=== PATIENT | female | born 1985 | race Caucasian/White ===

== ENCOUNTER 2021-05-16 10:06 | Emergency (ER) | payer OTHER, SELFPAY ==
[2021-05-16 10:07] VITALS: BP 169/109; PULSE 104; RESP 18; TEMP 36.2; O2SAT 95; BMI 44.8
[2021-05-16 10:09] VITALS: BP 169/109; PULSE 104; RESP 18; TEMP 36.4; O2SAT 95
--- NOTE | 2021-05-16 10:22 | ED.RN ---
Per pt [employer] Viktor Parra no drug test .
--- NOTE | 2021-05-16 10:27 | EDS_ITS ---
HPI History of Present Illness Chief Complaint: Laceration Detail of Chief Complaint: Left forearm laceration Informant: patient Occured/Mechanism Comment: Cut with a estimator paperboard boxes Onset/Context/Timing Current Severity: Mild Maximum Severity: Mild Narrative Narrative: Patient presents with left arm laceration. She was using a estimator paperboard boxes when the knife slipped and cut her in the left forearm. She has a 2 cm laceration. Bleeding is well controlled. She is unsure of her last tetanus update. Tetanus Immunization: Unknown PFSH [facility] Medical History Anxiety Asthma Depression Tendonitis Home Medications Lactobacillus acidophilus [Probiotic] 10,000 mmu cells PO DAILY 05/16/21 [History Last Taken Unknown] albuterol sulfate [ProAir HFA] 2 puff INHALATION Q6H PRN 05/16/21 [History Last Taken Unknown] cetirizine [Zyrtec] 10 mg PO DAILY 05/16/21 [History Last Taken Unknown] meloxicam 05/16/21 [History Last Taken Unknown] sertraline 100 mg PO DAILY 05/16/21 [History Last Taken Unknown] Allergy/AdvReac Type Severity Reaction Status Date / Time No Known Allergies Allergy Verified 05/16/21 10:07 Surgical History History of cholecystectomy Social History Smoking Status: Never smoker ROS ROS ED Constitutional Constitutional ED: Denies chills or fever(s) Eyes Eyes: Denies change in vision ENT ENT ED: Denies sore throat Cardiovascular Cardiovascular: Denies chest pain Respiratory/Chest Respiratory/Chest: Denies cough or dyspnea Gastrointestinal Gastrointestinal: Denies abdominal pain, nausea or vomiting Integumentary Reports other Details: Left forearm laceration ; Denies rash Neurologic Neurologic: Denies paresthesias or weakness Psychiatric Psychiatric: Denies anxiety or depression Allergic/Immunologic Allergic/Immunologic ED: Denies urticaria EXAM Physical Exam Const Vital Signs: 05/16/21 10:07 Temperature 97.1 F L Temperature Source Temporal Pulse Rate 104 H Respiratory Rate 18 Blood Pressure 169/109 H Blood Pressure Mean 129 Pulse Ox 95 Oxygen Delivery Method Room Air Positive well nourished and well developed General Appearance ED: well developed HEENT normocephalic Eyes EOMs intact bilaterally Neck supple Chest Wall inspection of chest normal Resp normal respiratory effort Cardio regular rate and regular rhythm GI non-tender Palpation: soft Extremity Extremity Narrative: 2 cm laceration to the volar left forearm. Bleeding well controlled. Full range of motion of the arm with strong distal pulses and bryant l sensation. Neuro oriented x3 and no sensory deficits noted Sensorium / Orientation: alert Motor Exam: strength 5/5 throughout Skin Skin Narrative: Laceration as above MDM MDM MDM Narrative Medical decision making narrative: Tetanus update is provided. Left forearm laceration is repaired with 3 sutures. See procedure note. Treatment and Re-Evaluation Comments:: Patient will follow up with [facility]. Wound care instructions are provided. Procedures Lacerations Left forearm laceration: Length: 0.79 in Depth: Skin Shape: Linear Laceration repair: Irrigated, Lidocaine and Local Number of Sutures/Caryl: 3 Suture Information: Ethilon, Simple and 5-0 Comment: Wound anesthetized with 1.5 cc of 1% lidocaine. Wound cleansed and irrigated. Skin closed with 3 simple interrupted sutures of 5-0 nylon. Discharge Plan Triage Chief Complaint: Laceration ED Provider: Linda Chappell Dx/Rx/DC Orders Clinical Impression: Laceration of forearm Instructions: ED Laceration: All Closures Prescriptions: No Action cetirizine [Zyrtec] 10 mg Tablet 10 mg PO DAILY RF: 0 sertraline 100 mg Tablet 100 mg PO DAILY RF: 0 albuterol sulfate [ProAir HFA] 90 mcg/actuation Hfa Aerosol Inhaler 2 puff INHALATION Q6H PRN (Reason: SOB) RF: 0 Probiotic 10 billion cell Capsule 10,000 mmu cells PO DAILY RF: 0 meloxicam RF: 0 Stand Alone Forms: Work Status Form Primary Care Provider: Jose Rafael Lester [facility] [GROUP OF PHYSIC[facility]ANS] - 7 Days for suture removal Jose Rafael Lester MD [Primary Care Provider] - Disposition Disposition: Home, Self Care Discharge Date/Time: 05/16/21 11:24
[2021-05-16] MEDS: Lidocaine 1% (20 ml mdv) 20 ML Vial INFILT (10:40)
[2021-05-16] MEDS: Diphth,Pertuss(Acell),Tet Vac 0.5 ML Vial IM (10:40)
[2021-05-16 11:23] VITALS: PULSE 89; RESP 17; O2SAT 96
== END 2021-05-16 11:24 | disposition home or self-care (01) ==
PROVIDERS: Emergency Provider Emergency Medicine; PCP Internal Medicine
DX: S51.812A Laceration without foreign body of left forearm, initial encounter (principal); W26.0XXA Contact with knife, initial encounter; F32.9 Major depressive disorder, single episode, unspecified; F41.9 Anxiety disorder, unspecified; J45.909 Unspecified asthma, uncomplicated; Z79.1 Long term (current) use of non-steroidal anti-inflammatories (NSAID); Z79.899 Other long term (current) drug therapy; Z23 Encounter for immunization
CPT/HCPCS: 12001; 90715; 99283